=== PATIENT | male | born 1970 | race Hispanic/Latino ===

== ENCOUNTER 2018-06-24 17:36 | Emergency (ER) | payer BC ==
[2018-06-24] MEDS ORDERED: HYDROCODONE/APAP 5/325 MG TAB ONE (18:20)
[2018-06-24] MEDS ORDERED: IBUPROFEN 400 MG TAB ONE (18:20)
[2018-06-24] MEDS ORDERED: IBUPROFEN 200 MG TAB PO ONE (18:20)
--- NOTE | 2018-06-24 18:41 | RAD REPORT ---
EXAM DESCRIPTION: RAD - Foot Left 3 View - 06/24/2018 6:22 pm CLINICAL HISTORY: PAIN Twisting injury to left ankle. COMPARISON: None FINDINGS: Left ankle and left foot- multiple projections are submitted. Moderate soft tissue swelling is seen along the lateral malleolus. No fracture or dislocation is seen . No aggressive marrow lesion.
--- NOTE | 2018-06-24 18:50 | EDPHYS ---
Physician Documentation [facility] Name: Priyank Montemayor Age: 48 yrs Sex: Male : 1970 Arrival Date: 06/24/2018 Time: 17:38 Bed 11 Private MD: ED Physician Colten Garcia HPI: 06/24 18:09 This 48 yrs old Male presents to ER via Ambulatory with complaints of Left pm1 foot and ankle pain. 18:09 The patient presents with pain. The complaints affect the left lateral ankle, lateral pm1 aspect of left foot and dorsum of left foot. Context: The problem was sustained outdoors, resulted from a mis-step, uneven driveway, the patient can partially bear weight, the patient is able to ambulate, Problem is a result from a previous injury: No. Onset: The symptoms/episode began/occurred 2 day(s) ago. Modifying factors: The symptoms are alleviated by nothing. the symptoms are aggravated by movement, weight bearing. Associated signs and symptoms: Pertinent negatives calf tenderness, fever, numbness, tingling, weakness. Treatment prior to arrival includes: over the counter medications, Tylenol. Severity of symptoms: in the emergency department the symptoms are unchanged. The patient has not experienced similar symptoms in the past. The patient has not recently seen a physician. patient walking on uneven driveway and he rolled his left ankle inwards. Pain and swelling to the lateral aspect of his ankle and pain to proximal dorsal aspect of left foot. Historical: - Allergies: 18:00 No Known Allergies; la1 - PMHx: 18:00 Hypertension; la1 - Immunization history:: Adult Immunizations up to date. - Social history:: Smoking status: Patient/guardian denies using tobacco. - Ebola Screening: : No symptoms or risks identified at this time. ROS: 18:09 Constitutional: Negative for fever, chills, and weight loss, Eyes: Negative for injury, pm1 pain, redness, and discharge, ENT: Negative for injury, pain, and discharge, Neck: Negative for injury, pain, and swelling, Cardiovascular: Negative for chest pain, palpitations, and edema, Respiratory: Negative for shortness of breath, cough, wheezing, and pleuritic chest pain, Abdomen/GI: Negative for abdominal pain, nausea, vomiting, diarrhea, and constipation, Back: Negative for injury and pain, : Negative for injury, bleeding, discharge, and swelling. 18:09 Skin: Negative for injury, rash, and discoloration, Neuro: Negative for headache, weakness, numbness, tingling, and seizure. 18:09 MS/extremity: Positive for pain, of the dorsum of left foot and lateral aspect of left foot and left lateral ankle, Negative for decreased range of motion. Exam: 18:09 Constitutional: This is a well developed, well nourished patient who is awake, alert, pm1 and in no acute distress. Head/Face: Normocephalic, atraumatic. Neck: Trachea midline, no thyromegaly or masses palpated, and no cervical lymphadenopathy. Supple, full range of motion without nuchal rigidity, or vertebral point tenderness. No Meningismus. Chest/axilla: Normal chest wall appearance and motion. Nontender with no deformity. No lesions are appreciated. Cardiovascular: Regular rate and rhythm with a normal S1 and S2. No gallops, murmurs, or rubs. Normal PMI, no JVD. No pulse deficits. Respiratory: Lungs have equal breath sounds bilaterally, clear to auscultation and percussion. No rales, rhonchi or wheezes noted. No increased work of breathing, no retractions or nasal flaring. Abdomen/GI: Soft, non-tender, with normal bowel sounds. No distension or tympany. No guarding or rebound. No evidence of tenderness throughout. Back: No spinal tenderness. No costovertebral tenderness. Full range of motion. Skin: Warm, dry with normal turgor. Normal color with no rashes, no lesions, and no evidence of cellulitis. 18:09 Musculoskeletal/extremity: Extremities: grossly normal except: noted in the lateral side of left foot, left lateral malleolus and dorsum of left foot: tenderness, There is no evidence of decreased ROM, laceration, puncture, Circulation is intact in all extremities. Vital Signs: 18:00 BP 140 / 97; Pulse 62; Resp 18; Temp 97.7; Pulse Ox 98% on R/A; Weight 99.79 kg; Height la1 5 ft. 7 in. (170.18 cm); 18:00 Body Mass Index 34.46 (99.79 kg, 170.18 cm) la1 MDM: 18:05 Patient medically screened. pm1 18:13 Data reviewed: vital signs. Data interpreted: Pulse oximetry: on room air is 98 %. pm1 Interpretation: normal. 18:48 Counseling: I had a detailed discussion with the patient and/or guardian regarding: the pm1 historical points, exam findings, and any diagnostic results supporting the discharge/admit diagnosis, radiology results, the need for outpatient follow up, to return to the emergency department if symptoms worsen or persist or if there are any questions or concerns that arise at home. 06/24 18:08 Order name: Foot Left 3 View XRAY; Complete Time: 18:48 pm1 06/24 18:08 Order name: Ankle Left 3 View XRAY pm1 06/24 18:08 Order name: Crutches; Complete Time: 19:53 pm1 06/24 18:50 Order name: Aircast Ankle Splint; Complete Time: 19:36 pm1 Administered Medications: 18:12 Drug: [place] 5 mg-325 mg 1 tabs Route: PO; la1 19:53 Follow up: Response: No adverse reaction; Pain is decreased la1 18:12 Drug: Ibuprofen 600 mg Route: PO; la1 19:53 Follow up: Response: No adverse reaction; Pain is decreased la1 Disposition: 06/24/18 18:49 Discharged to Home. Impression: Unspecified sprain of left foot, Sprain of unspecified ligament of left ankle. - Condition is Stable. - Discharge Instructions: Ankle Sprain, Cast or Splint Care, Adult, Crutch Use, Foot Sprain. - Prescriptions for Naprosyn 500 mg Oral Tablet - take 1 tablet by ORAL route 2 times per day take with food; 30 tablet. Tylenol- Codeine #3 300-30 mg Oral Tablet - take 2 tablets by ORAL route every 6 hours As needed; 20 tablet. - Work release form, Medication Reconciliation Form, Thank You Letter, Prescription Opioid Use, Family Work Release form. - Follow up: Emergency Department; When: As needed; Reason: Worsening of condition. Follow up: Private Physician; When: 2 - 3 days; Reason: Recheck today's complaints, Continuance of care, Re-evaluation by your physician. - Problem is new. - Symptoms have improved. Addendum: 07/03/2018 06:59 Co-signature as Attending Physician, Colten Garcia MD. r n Signatures: Dispatcher [employer] EDMS Colten Garcia MD MD rn AttemaGuevara RN RN la1 Star Kellogg, BUSINESS MANAGEMENT CONSULTANT BUSINESS MANAGEMENT CONSULTANT pm1 Corrections: (The following items were deleted from the chart) 06/24 19:54 18:49 06/24/2018 18:49 Discharged to Home. Impression: Unspecified sprain of left foot; la1 Sprain of unspecified ligament of left ankle. Condition is Stable. Forms are Medication Reconciliation Form, Thank You Letter, Antibiotic Education, Prescription Opioid Use. Follow up: Emergency Department; When: As needed; Reason: Worsening of condition. Follow up: Private Physician; When: 2 - 3 days; Reason: Recheck today's complaints, Continuance of care, Re-evaluation by your physician. Problem is new. Symptoms have improved. pm1
--- NOTE | 2018-06-24 18:50 | ER ---
Nurse's Notes [facility] Name: Priyank Montemayor Age: 48 yrs Sex: Male : 1970 Arrival Date: 06/24/2018 Time: 17:38 Bed 11 Private MD: Diagnosis: Unspecified sprain of left foot;Sprain of unspecified ligament of left ankle Presentation: 06/24 17:59 Presenting complaint: Patient states: I rolled my left ankle 2 days ago and am still la1 having pain, pt ambulatory with limp. Transition of care: patient was not received from another setting of care. Onset of symptoms was June 24, 2018. Risk Assessment: Do you want to hurt yourself or someone else? Patient reports no desire to harm self or others. Initial Sepsis Screen: Does the patient meet any 2 criteria? No. Patient's initial sepsis screen is negative. Does the patient have a suspected source of infection? No. Patient's initial sepsis screen is negative. Care prior to arrival: None. 17:59 Method Of Arrival: Ambulatory la1 17:59 Acuity: LAURIE 4 la1 Historical: - Allergies: 18:00 No Known Allergies; la1 - PMHx: 18:00 Hypertension; la1 - Immunization history:: Adult Immunizations up to date. - Social history:: Smoking status: Patient/guardian denies using tobacco. - Ebola Screening: : No symptoms or risks identified at this time. Screenin:01 Abuse screen: Denies threats or abuse. Nutritional screening: On. Tuberculosis la1 screening: No symptoms or risk factors identified. Fall Risk None identified. Assessment: 18:01 General: Appears in no apparent distress. Behavior is calm, cooperative. Pain: la1 Complains of pain in lateral side of left foot, left lateral malleolus and left medial malleolus. Neuro: Level of Consciousness is awake, alert, obeys commands. Cardiovascular: Capillary refill < 3 seconds Patient's skin is warm and dry. Respiratory: Airway is patent Respiratory effort is even, unlabored, Respiratory pattern is regular, symmetrical. GI: No signs and/or symptoms were reported involving the gastrointestinal system. : No signs and/or symptoms were reported regarding the genitourinary system. Musculoskeletal: Circulation, motion, and sensation intact. Capillary refill < 3 seconds, is brisk, Range of motion: limited in left ankle. 19:53 Reassessment: Patient appears in no apparent distress at this time. No changes from la1 previously documented assessment. Patient and/or family updated on plan of care and expected duration. Pain level reassessed. Patient is alert, oriented x 3, equal unlabored respirations, skin warm/dry/pink. Vital Signs: 18:00 BP 140 / 97; Pulse 62; Resp 18; Temp 97.7; Pulse Ox 98% on R/A; Weight 99.79 kg; Height la1 5 ft. 7 in. (170.18 cm); 18:00 Body Mass Index 34.46 (99.79 kg, 170.18 cm) la1 ED Course: 17:38 Patient arrived in ED. rg4 18:00 Triage completed. la1 18:01 Arm band placed on right wrist. la1 18:01 Patient has correct armband on for positive identification. la1 18:03 Star Kellogg NP is PHCP. pm1 18:03 Colten Garcia MD is Attending Physician. pm1 18:23 Foot Left 3 View XRAY In Process Unspecified. EDMS 18:23 Ankle Left 3 View XRAY In Process Unspecified. EDMS 19:53 Guevara Eisenberg RN is Primary Nurse. la1 19:54 No provider procedures requiring assistance completed. Patient did not have IV access la1 during this emergency room visit. Administered Medications: 18:12 Drug: [place] 5 mg-325 mg 1 tabs Route: PO; la1 19:53 Follow up: Response: No adverse reaction; Pain is decreased la1 18:12 Drug: Ibuprofen 600 mg Route: PO; la1 19:53 Follow up: Response: No adverse reaction; Pain is decreased la1 Outcome: 18:49 Discharge ordered by . pm1 19:54 Discharged to home via ambulance, with crutches, with family. la1 19:54 Condition: stable 19:54 Discharge instructions given to patient, Instructed on discharge instructions, follow up and referral plans. medication usage, crutch walking, Demonstrated understanding of instructions, follow-up care, medications, crutch walking, Prescriptions given X 2. 19:54 Patient left the ED. la1 Signatures: Dispatcher [employer] EDMS Guevara Eisenberg RN RN la1 Star Kellogg NP PAVING PLANT OPERATOR pm1 Garrett, Lorrie rg4
--- NOTE | 2018-06-29 10:16 | RAD REPORT ---
EXAM DESCRIPTION: RAD - Ankle Left 3 View - 06/24/2018 6:24 pm CLINICAL HISTORY: PAIN Twisting injury to left ankle. COMPARISON: None FINDINGS: Left ankle and left foot- multiple projections are submitted. Moderate soft tissue swelling is seen along the lateral malleolus. No fracture or dislocation is seen . No aggressive marrow lesion.
== END 2018-06-24 19:54 | disposition home or self-care (01) ==
LOC: ER 17:36
DX: S93.402A Sprain of unspecified ligament of left ankle, initial encounter (principal); S93.602A Unspecified sprain of left foot, initial encounter; X58.XXXA Exposure to other specified factors, initial encounter; Y93.01 Activity, walking, marching and hiking; Y92.89 Other specified places as the place of occurrence of the external cause; I10 Essential (primary) hypertension
CPT/HCPCS: 99284